=== PATIENT | female | born 1980 | race Caucasian/White ===

== ENCOUNTER 2021-03-12 06:32 | Observation (INO) ==
[~2021-03-12 06:32] MED LIST: Bacitracin 50,000 UNIT, Polymyxin B Sulfate 500,000 UNIT, Sodium Chloride IRRigation 1,... IR ONE
[2021-03-12] MEDS ORDERED: *HR* Propofol 200 MG/20 ML VIAL IVP ONE ×2 (06:42→09:33)
[2021-03-12] MEDS ORDERED: *HR* FentaNYL (PF) 100 MCG/2 ML VIAL ONE (06:42)
[2021-03-12] MEDS ORDERED: Lidocaine -MPF 2% 2 ML VIAL ONE (06:42)
[2021-03-12] MEDS ORDERED: Ondansetron 4 MG/2 ML VIAL ONE (06:42)
[2021-03-12] MEDS ORDERED: *HR* Succinylcholine 200 MG/10 ML VIAL IVP ONE (06:42)
[2021-03-12] MEDS ORDERED: Lidocaine -MPF 4% 5 ML AMPUL ONE (06:42)
[2021-03-12] MEDS ORDERED: *HR* Rocuronium Bromide 50 MG/5 ML VIAL ONE (06:42)
[2021-03-12] MEDS ORDERED: *HR* Midazolam HCl 2 MG/2 ML VIAL ONE (06:43)
[2021-03-12] MEDS ORDERED: *HR* Remifentanil 1 MG VIAL IVP ONE ×2 (06:49)
[2021-03-12] MEDS ORDERED: Ondansetron 4 MG/2 ML VIAL IVP PRN ×2 (06:57→11:16)
[2021-03-12] MEDS ORDERED: *HR* OxyCODONE Immed Rel 5 MG TABLET PO PRN (06:57)
[2021-03-12] MEDS ORDERED: *HR* FentaNYL (PF) 100 MCG/2 ML VIAL IVP PRN (06:57)
[2021-03-12] MEDS ORDERED: *HR* Phenylephrine 10 MG/ML VIAL ONE (06:59)
[2021-03-12] MEDS ORDERED: Ringers Solution, Lactated 1,000 ML IVC SCH ×2 (07:00→11:16)
[2021-03-12] MEDS ORDERED: CeFAZolin Syr 2,000MG/20 ML 2,000 MG/20 ML SYRINGE IVPB ONE (07:07)
[2021-03-12] MEDS ORDERED: Acetaminophen IV 1,000 MG/100 ML BAG IVPB ONE ×2 (07:37→07:45)
[2021-03-12] MEDS ORDERED: *HR* Magnesium Sulfate 1 GM/2 ML VIAL ONE (07:41)
[2021-03-12] MEDS ORDERED: *HR* HYDROMORPHONE 2 MG/ML VIAL ONE (08:23)
[2021-03-12] MEDS ORDERED: *HR* HYDROcodone/Acet 5/325 mg TABLET PO PRN (11:16)
[2021-03-12] MEDS ORDERED: Acetaminophen 325 MG TABLET PO PRN (11:16)
[2021-03-12] MEDS ORDERED: Naloxone 0.4 MG/ML INJ IVP PRN (11:16)
[2021-03-12] MEDS: Gabapentin 300 MG CAPSULE PO SCH ×2 (12:00→20:30)
[2021-03-12] MEDS: CeFAZolin 2 GM/120 ML BAG IVPB SCH (17:10)
[2021-03-12] MEDS: *HR* OxyCODONE Immed Rel 5 MG TABLET PO PRN (17:10)
[2021-03-12] MEDS: Baclofen 10 MG TABLET PO SCH (20:30)
[2021-03-13] MEDS: CeFAZolin 2 GM/120 ML BAG IVPB SCH (00:02)
[2021-03-13] MEDS: *HR* OxyCODONE Immed Rel 5 MG TABLET PO PRN ×3 (01:07→19:43)
[2021-03-13] MEDS: Gabapentin 300 MG CAPSULE PO SCH ×3 (03:08→19:29)
[2021-03-13] MEDS ORDERED: Acetaminophen/Butalbital/CaffeineTABLET PO ONE (09:54)
[2021-03-13] MEDS: tiZANidine 4 MG TABLET PO PRN (15:01)
[2021-03-13] MEDS: Baclofen 10 MG TABLET PO SCH (20:56)
[2021-03-14] MEDS: Gabapentin 300 MG CAPSULE PO SCH (03:05)
[2021-03-14] MEDS: tiZANidine 4 MG TABLET PO PRN (03:10)
[2021-03-14] MEDS: *HR* OxyCODONE Immed Rel 5 MG TABLET PO PRN (10:12)
[2021-03-14 10:40] VITALS: BP 126/78
== END 2021-03-14 11:09 | disposition home or self-care (01) ==
LOC: SAMDAY 06:32 → 3NENU 06:32
PROVIDERS: ADMIT Orthopaedic Surgery Orthopaedic Surgery of the Spine; ATTEND Orthopaedic Surgery Orthopaedic Surgery of the Spine